=== PATIENT | male | born 1990 | race Caucasian/White ===

== ENCOUNTER 2019-01-14 08:46 | Emergency (ER) | payer SELFPAY ==
[2019-01-14] MEDS ORDERED: ASPIRIN 81 MG TABLET, CHEWABLE PO ONE (09:14)
--- NOTE | 2019-01-14 09:16 | ER Document Report ---
ED Medical Screen (RME) - General Chief Complaint: Shortness Of Breath Stated Complaint: HEART RATE Time Seen by Provider: 01/14/19 09:10 Primary Care Provider: MADDY ARBOLEDA MD [Primary Care Provider] - Follow up as needed Mode of Arrival: Ambulatory Information source: Patient Notes: Patient is an otherwise healthy 28-year-old male who presents the emergency department with chief complaint of chest pressure with shortness of breath. Patient reports he was sitting at his desk at work when he all of a sudden had mid sternal squeezing chest pressure with associated shortness of breath and tingling in both of his arms and hands. All of his symptoms have now resolved. Patient denies any nausea, vomiting or diaphoresis. Patient has no history of hypertension, hyperlipidemia and he is a non-smoker. Exam: Lung sounds clear to auscultation bilaterally. Heart sounds S1-S2 present with no ectopy noted. I have greeted and performed a rapid initial assessment of this patient. A comprehensive ED assessment and evaluation of the patient, analysis of test results and completion of the medical decision making process will be conducted by additional ED providers. Dictation of this chart was performed using voice recognition software; therefore, there may be some unintended grammatical errors. TRAVEL OUTSIDE OF THE [place] IN LAST 30 DAYS: No - Related Data Allergies/Adverse Reactions: sulfamethoxazole [From Bactrim] Allergy (Unknown, Verified 01/14/19 08:46) trimethoprim [From Bactrim] Allergy (Unknown, Verified 01/14/19 08:46) Past Medical History Past Surgical History: Reports: Hx Tonsillectomy - & adenoids - Immunizations Hx Diphtheria, Pertussis, Tetanus Vaccination: Yes - <5 years Physical Exam - Vital signs Vitals: Temp Pulse Resp BP Pulse Ox 97.9 F 90 15 153/86 H 99 01/14/19 08:54 01/14/19 08:54 01/14/19 08:54 01/14/19 08:54 01/14/19 08:54 Course - Vital Signs Vital signs: Temp Pulse Resp BP Pulse Ox 97.9 F 90 15 153/86 H 99 01/14/19 08:54 01/14/19 08:54 01/14/19 08:54 01/14/19 08:54 01/14/19 08:54 Doctor's Discharge - Discharge Referrals: MADDY ARBOLEDA MD [Primary Care Provider] - Follow up as needed
[2019-01-14 09:58] LABS: ABSOLUTE EOSINOPHILS # (AUTO) 0.1 10^3/uL (0.0-0.6); ABSOLUTE LYMPHOCYTES (AUTO) 1.3 10^3/uL (0.5-4.7); ABSOLUTE MONOCYTES (AUTO) 0.7 10^3/uL (0.1-1.4); ABSOLUTE NEUT (AUTO) 3.9 10^3/uL (1.7-8.2); BASOPHILS % (AUTO) 0.6 % (0-2); EOSINOPHILS % (AUTO) 1.9 % (0-6); HEMATOCRIT 43.8 % (37.9-51.0); HEMOGLOBIN 15.5 g/dL (13.5-17.0); LYMPHOCYTES % (AUTO) 21.3 % (13-45); MEAN CORPUSCULAR HEMOGLOBIN 29.3 pg (27.0-33.4); MEAN CORPUSCULAR HGB CONC 35.5 g/dL (32.0-36.0); MEAN CORPUSCULAR VOLUME 83 fl (80-97); PLATELET COUNT 229 10^3/uL (150-450); RED BLOOD COUNT 5.31 10^6/uL (4.35-5.55); RED CELL DISTRIBUTION WIDTH 12.9 % (11.5-14.0); SEGMENTED NEUTROPHILS % (AUTO) 65.2 % (42-78); TOTAL CELLS COUNTED % (AUTO) 100 %
[2019-01-14 10:17] LABS: ALANINE AMINOTRANSFERASE 41 U/L (21-72); ALBUMIN 4.7 g/dL (3.5-5.0); ALKALINE PHOSPHATASE 82 U/L (38-126); ANION GAP 10 (5-19); ASPARTATE AMINO TRANSFERASE 32 U/L (17-59); BILIRUBIN,DIRECT 0.4 mg/dL (0.0-0.4); BLOOD UREA NITROGEN 18 mg/dL (7-20); CALCIUM 9.8 mg/dL (8.4-10.2); CARBON DIOXIDE 29 mmol/L (22-30); CHLORIDE 102 mmol/L (98-107); CREATINE KINASE 115 U/L (55-170); GLUCOSE 103 mg/dL (75-110); POTASSIUM 4.3 mmol/L (3.6-5.0); SODIUM 140.5 mmol/L (137-145); TOTAL PROTEIN 7.9 g/dL (6.3-8.2)
--- NOTE | 2019-01-14 10:19 | ER Document Report ---
ED General - General Chief Complaint: Shortness Of Breath Stated Complaint: HEART RATE Time Seen by Provider: 01/14/19 09:10 Primary Care Provider: MADDY ARBOLEDA MD [MARY CABELLO] - Follow up as needed Mode of Arrival: Ambulatory Information source: Patient, [facility] Records Notes: 28-year-old male with no reported past medical history presents with complaint of chest pain, shortness of breath, palpitations that occurred 2 hours prior to arrival while at work. Patient states that he had a sudden onset of feeling "flushed", dizzy, became sweaty and then experienced palpitations, shortness of breath and chest pain that are presently resolved. Patient denies prior similar symptoms, recent illness, early history of cardiac disease in his family. Patient does not smoke but admits to drinking daily. Admits to intermittent marijuana use but states his last use was approximately 2-3 months ago. TRAVEL OUTSIDE OF THE [place] IN LAST 30 DAYS: No - HPI Onset: This morning Onset/Duration: Sudden, Gone Quality of pain: Achy Severity: None Pain Level: Denies Associated symptoms: Chest pain, Shortness of breath, Sweating, Other - Dizziness. denies: Diarrhea, Headache, Hurts to breath, Leg swelling, Nausea, Vomiting Exacerbated by: Denies Relieved by: Denies Similar symptoms previously: No Recently seen / treated by doctor: No - Related Data Allergies/Adverse Reactions: sulfamethoxazole [From Bactrim] Allergy (Unknown, Verified 01/14/19 08:46) trimethoprim [From Bactrim] Allergy (Unknown, Verified 01/14/19 08:46) Past Medical History - General Information source: Patient - Social History Smoking Status: Never Smoker Chew tobacco use (# tins/day): No Frequency of alcohol use: daily Drug Abuse: Marijuana Lives with: Spouse/Significant other Family History: Reviewed & Not Pertinent Patient has suicidal ideation: No Patient has homicidal ideation: No - Medical History Medical History: Negative Renal/ Medical History: Denies: Hx Peritoneal Dialysis Past Surgical History: Reports: Hx Tonsillectomy - & adenoids - Immunizations Hx Diphtheria, Pertussis, Tetanus Vaccination: Yes - <5 years Review of Systems - Review of Systems Notes: REVIEW OF SYSTEMS: CONSTITUTIONAL : Denies fever, chills, Denies recent illness. Denies weight loss, recent hospitalizations. EENT: Denies visual changes, eye pain. Denies sore throat, oral lesions, difficulty swallowing. CARDIOVASCULAR: Denies lower extremity edema. RESPIRATORY: Denies cough. Denies wheezing. GASTROINTESTINAL: Denies abdominal pain or distention. Denies nausea, vomiting, or diarrhea. Denies blood in vomitus, stools, or per rectum. Denies black, tarry stools. Denies constipation. GENITOURINARY: Denies difficulty urinating, painful urination, frequency, blood in urine, testicular pain or penile discharge. MUSCULOSKELETAL: Denies back or neck pain or stiffness. Denies joint pain or swelling. SKIN: Denies rash, lesions or sores. HEMATOLOGIC : Denies easy bruising or bleeding. LYMPHATIC: Denies swollen glands. NEUROLOGICAL: Denies confusion or altered mental status. Denies loss of consciousness. Denies headache. Denies weakness or paralysis. Denies problems difficulty with ambulation, slurred speech. Denies sensory loss, numbness, or tingling. Denies seizures. PSYCHIATRIC: Denies anxiety or stress. Denies depression, suicidal ideation, o r Physical Exam - Vital signs Vitals: Temp Pulse Resp BP Pulse Ox 97.9 F 90 15 153/86 H 99 01/14/19 08:54 01/14/19 08:54 01/14/19 08:54 01/14/19 08:54 01/14/19 08:54 Interpretation: Hypertensive - Notes Notes: PHYSICAL EXAMINATION: GENERAL: Well-appearing, well-nourished and in no acute distress. HEAD: Atraumatic, normocephalic. EYES: Pupils equal round and reactive to light, extraocular movements intact, sclera anicteric, conjunctiva are normal. ENT: Nares patent, oropharynx clear without exudates. Moist mucous membranes. NECK: Normal range of motion, supple without lymphadenopathy LUNGS: Breath sounds clear to auscultation bilaterally and equal. No wheezes rales or rhonchi. HEART: Regular rate and rhythm without murmurs ABDOMEN: Soft, nontender, nondistended abdomen. No guarding, no rebound. No masses appreciated. Musculoskeletal: Normal range of motion, no pitting or edema. No cyanosis. NEUROLOGICAL: Cranial nerves grossly intact. Normal speech, normal gait. Normal sensory, motor exams PSYCH: Normal mood, normal affect. SKIN: Warm, Dry, normal turgor, no rashes or lesions noted. Course - Re-evaluation Re-evalutation: 01/14/19 11:39 Laboratory 01/14/19 01/14/19 01/14/19 09:20 09:20 09:20 WBC 6.0 RBC 5.31 Hgb 15.5 Hct 43.8 MCV 83 MCH 29.3 MCHC 35.5 RDW 12.9 Plt Count 229 Seg Neutrophils % 65.2 Lymphocytes % 21.3 Monocytes % 11.0 Eosinophils % 1.9 Basophils % 0.6 Absolute Neutrophils 3.9 Absolute Lymphocytes 1.3 Absolute Monocytes 0.7 Absolute Eosinophils 0.1 Absolute Basophils 0.0 Sodium 140.5 Potassium 4.3 Chloride 102 Carbon Dioxide 29 Anion Gap 10 BUN 18 Creatinine 0.81 Est GFR ( Amer) > 60 Est GFR (Non-Af Amer) > 60 Glucose 103 Calcium 9.8 Total Bilirubin 1.0 Direct Bilirubin 0.4 Neonat Total Bilirubin Not Reportable Neonat Direct Bilirubin Not Reportable Neonat Indirect Bili Not Reportable AST 32 ALT 41 Alkaline Phosphatase 82 Creatine Kinase 115 CK-MB (CK-2) 0.43 Troponin I < 0.012 Total Protein 7.9 Albumin 4.7 Urine Opiates Screen Urine Methadone Screen Ur Barbiturates Screen Ur Phencyclidine Scrn Ur Amphetamines Screen U Benzodiazepines Scrn Urine Cocaine Screen U Marijuana (THC) Screen 01/14/19 09:20 WBC RBC Hgb Hct MCV MCH MCHC RDW Plt Count Seg Neutrophils % Lymphocytes % Monocytes % Eosinophils % Basophils % Absolute Neutrophils Absolute Lymphocytes Absolute Monocytes Absolute Eosinophils Absolute Basophils Sodium Potassium Chloride Carbon Dioxide Anion Gap BUN Creatinine Est GFR ( Amer) Est GFR (Non-Af Amer) Glucose Calcium Total Bilirubin Direct Bilirubin Neonat Total Bilirubin Neonat Direct Bilirubin Neonat Indirect Bili AST ALT Alkaline Phosphatase Creatine Kinase CK-MB (CK-2) Troponin I Total Protein Albumin Urine Opiates Screen NEGATIVE Urine Methadone Screen NEGATIVE Ur Barbiturates Screen NEGATIVE Ur Phencyclidine Scrn NEGATIVE Ur Amphetamines Screen NEGATIVE U Benzodiazepines Scrn NEGATIVE Urine Cocaine Screen NEGATIVE U Marijuana (THC) Screen NEGATIVE Chest X-Ray 01/14/19 09:14 IMPRESSION: 1. No significant interval changes since the prior examination dated 08/10/2014. No acute findings. Temp Pulse Resp BP Pulse Ox 97.9 F 90 17 135/77 H 98 01/14/19 08:54 01/14/19 08:54 01/14/19 11:01 01/14/19 11:00 01/14/19 11:01 28-year-old male presents with sudden onset of diaphoresis, palpitations, shortness of breath and chest pain that resolved prior to my exam. Vital signs reviewed and within normal limits except for mildly elevated blood pressure. Patient does not appear toxic or dehydrated. He is in no acute distress. Previous medical records and nursing notes reviewed. Patient did receive aspirin prior to my exam. He denies any current chest pain, shortness of breath, diaphoresis, nausea. CBC, CMP, cardiac within normal limits. Patient has a heart score of 1. Has not had any recurrence of his chest pain throughout his ED course. Patient advised to establish primary care and return with any concerns. Dictation on this chart was performed using voice recognition software and may result in unintended grammatical, spelling, syntax or errors. HEART Score: History-1 ECG-0 Age-0 Risk Factors-0 Troponin Total: 1 If HEART score is = 3 AND both troponin measurements are normal, the 30 day risk of a major adverse cardiac event (all-cause mortality, myocardial infarction or need for coronary revascularization) is < 1% (Sensitivity 100%, NPV 100%). Chest pain in a patient without evidence of cardiac or other serious etiology on workup today. I discussed with patient that, based on their age, risk factors and emergency department testing today, the likelihood that their symptoms are related to a heart attack is very low (estimated risk of heart attack or over the next 30 days of less than 1%). The patient demonstrates decision making capacity and has verbalized an understanding of these risks to me. Based on this, the patient has chosen to follow-up as an outpatient. Usual chest pain return precautions reviewed. The patient states understanding and agreement with this plan. 01/14/19 11:41 Patient is PERC negative. 01/14/19 22:34 01/14/19 22:35 - Vital Signs Vital signs: Temp Pulse Resp BP Pulse Ox 97.9 F 90 17 135/77 H 98 01/14/19 08:54 01/14/19 08:54 01/14/19 11:01 01/14/19 11:00 01/14/19 11:01 - Laboratory Result Diagrams: 01/14/19 09:20 01/14/19 09:20 - Diagnostic Test Radiology reviewed: Image reviewed, Reports reviewed - EKG Interpretation by Me EKG shows normal: Sinus rhythm Rate: Normal Rhythm: NSR When compared to previous EKG there are: Previous EKG unavailable Discharge - Discharge Clinical Impression: Elevated blood pressure reading Chest pain Qualifiers: Chest pain type: unspecified Qualified Code(s): R07.9 - Chest pain, unspecified Condition: Good Disposition: HOME, SELF-CARE Instructions: Chest Pain of Unclear Cause ([facility]), Dyspnea, Nonspecific ([facility]), Palpitations (Irregular or Rapid Heartrate) ([facility]) Additional Instructions: You were seen today for chest pain. The exact cause of your pain is unclear. However, based on your cardiac enzyme testing, chest x-ray, and EKG it does not appear that it is from an immediately life-threatening cause at this time. Although your testing here is normal is critical that you follow-up with your primary care physician for continued evaluation of this chest pain and possible stress testing. I recommended you see your physician within the next 24-48 hours to be evaluated for consideration of a stress test. Please return to emergency department immediately if you have worsening of your chest pain, shortness of breath, vomiting, become unable to exert yourself due to pain or difficulty breathing, you pass out, or have any pain that radiates into your arms, jaw, or back. Please also return if you have any additional symptoms that are concerning to you. Recommendations: It is recommended to followup with a primary care doctor within the next 2 days. If you do not have a primary care doctor or you are unable to get an apointment during that time, I left the number for some internal medicine physicians that are affiliated with this hospital. Dr. Ren Santoyo [facility] [address], [place] [phone] Dr Blackburn Address: [address] [place] [address] , [place] [address] Forms: Elevated Blood Pressure Referrals: MADDY ARBOLEDA MD [MARY CABELLO] - Follow up as needed
--- NOTE | 2019-01-14 10:37 | RADIOLOGY REPORT (SQ) ---
EXAM DESCRIPTION: CHEST SINGLE VIEW COMPLETED DATE/TIME: 01/14/2019 10:25 am REASON FOR STUDY: chest pain with sob COMPARISON: 08/10/2014 EXAM PARAMETERS: NUMBER OF VIEWS: One view. TECHNIQUE: Single frontal radiographic view of the chest acquired. RADIATION DOSE: NA LIMITATIONS: None. FINDINGS: LUNGS AND PLEURA: No opacities, masses or pneumothorax. No pleural effusion. MEDIASTINUM AND HILAR STRUCTURES: No masses. Contour normal. HEART AND VASCULAR STRUCTURES: Heart normal in size. Normal vasculature. BONES: No acute findings. HARDWARE: None in the chest. OTHER: No other significant finding. IMPRESSION: 1. No significant interval changes since the prior examination dated 08/10/2014. No ac hilda findings. TECHNICAL DOCUMENTATION: JOB ID: [id number] [employer]- All Rights Reserved Reading location - IP/workstation name: [email or web address]
[2019-01-14 10:50] LABS: CREATINE KINASE MB 0.43 ng/mL (<4.55)
[2019-01-14 10:51] LABS: TROPONIN I < 0.012 ng/mL
[2019-01-14 11:36] LABS: URINE AMPHETAMINES SCREEN NEGATIVE; URINE BARBITURATES SCREEN NEGATIVE; URINE BENZODIAZEPINES SCREEN NEGATIVE; URINE COCAINE SCREEN NEGATIVE; URINE MARIJUANA (THC) SCREEN NEGATIVE; URINE METHADONE SCREEN NEGATIVE; URINE PHENCYCLIDINE SCREEN NEGATIVE
[2019-01-14 11:44] VITALS: BP 135/77
--- NOTE | 2019-01-14 12:24 | EKG REPORT ---
SEVERITY:- NORMAL ECG - SINUS RHYTHM : Confirmed by: Jose Abdi MD 14-Jan-2019 12:23:38
== END 2019-01-14 11:54 | disposition home or self-care (01) ==
LOC: ER 08:46
DX: R07.9 Chest pain, unspecified (principal); R03.0 Elevated blood-pressure reading, without diagnosis of hypertension; R06.02 Shortness of breath; Z88.3 Allergy status to other anti-infective agents
CPT/HCPCS: 36415; 71045; 80053; 80307; 82550; 82553; 84484; 85025; 93005; 93010; 99285

== ENCOUNTER → 2020-01-20 | Outpatient (CLI) | payer BC ==
--- NOTE | 2020-01-20 14:48 | RADIOLOGY REPORT (SQ) ---
EXAM DESCRIPTION: BARIUM SWALLOW ESOPHAGUS IMAGES COMPLETED DATE/TIME: 01/20/2020 9:36 am REASON FOR STUDY: DYSPHAGIA R13.10 DYSPHAGIA, UNSPECIFIED COMPARISON: None. TECHNIQUE: Under fluoroscopic guidance, patient ingested effervescent granules followed by thick and thin barium. Fluoroscopic spot images and routine radiographic images acquired and stored on PACS. 12 MM BARIUM TABLET GIVEN: Yes. No significant delay in passage. LIMITATIONS: None. FLUOROSCOPY TIME: FLUORO TIME: 2.3 minutes of fluoroscopy was used. 10 images saved to PACS. FINDINGS: NEUROMUSCULAR COORDINATION OF SWALLOW: Normal. No aspiration. ESOPHAGEAL MOTILITY: Normal peristalsis. No esophageal spasm. ESOPHAGEAL MUCOSA: There is a focal area of mild mucosal thickening in the proximal esophagus at the thoracic inlet. No strictures or ulcerations are identified. GASTRO-ESOPHAGEAL JUNCTION: Mild gastroesophageal reflux. No hiatal hernia seen. 12 mm barium table t passed through the GE junction without delay. NON-GI TRACT STRUCTURES: No significant finding. OTHER: No other significant finding. IMPRESSION: FOCAL AREA OF INFLAMMATION ALONG THE RIGHT LATERAL ASPECT OF THE PROXIMAL ESOPHAGUS AT T HE THORACIC INLET. NO ULCERATIONS OR STRICTURES IDENTIFIED. MILD GASTROESOPHAGEAL REFLUX. COMMENT: Quality ID [id number]: Final reports for procedures using fluoroscopy that document radiation exp osure indices, or exposure time and number of fluorographic images (if radiation exposure indices are not available) TECHNICAL DOCUMENTATION: JOB ID: [id number] 2010 [employer]- All Rights Reserved Reading location - IP/workstation name: [email or web address] [id number]
== END ==
LOC: RAD 09:08
PROVIDERS: ATTEND Internal Medicine Gastroenterology
DX: R13.10 Dysphagia, unspecified (principal)
CPT/HCPCS: 74220

== ENCOUNTER 2020-03-03 06:56 | Day surgery (SDC) | payer BC ==
[~2020-03-03 06:56] MED LIST: LACTATED RINGERS 1000 ML IV PRN; LIDOCAINE 0.5% INJ-PF (5 MG/ML) 50 ML SDV SUBCUT PRN
[2020-03-03] MEDS ORDERED: PROPOFOL INJ 200 MG/20 ML VIAL IV ONE (09:27)
[2020-03-03] MEDS ORDERED: DIPHENHYDRAMINE HCL 50 MG/ML VIAL IV PRN (10:07)
[2020-03-03 10:50] VITALS: BP 117/76
--- NOTE | 2020-03-03 11:57 | Operative Report ---
Operative Report DATE OF SURGERY: 03/03/20 Operative Report: The risks benefits and alternatives of the procedure explained to the patient in detail and informed consent is obtained.A GIF Olympus video scope was inserted into the patient's mouth and hypopharynx, the esophagus is identified intubated and insufflated, the scope was then advanced through the esophagus stomach and duodenum, retroflexion maneuver is done, the esophagus stomach and first and second portions of the duodenum examined PREOPERATIVE DIAGNOSIS: Abnormal barium swallow POSTOPERATIVE DIAGNOSIS: Possible Jones's esophagus versus esophagitis status post biopsy gastritis status post biopsy rule out Helicobacter pylori OPERATION: EGD with biopsy SURGEON: JOANNA DURAND ANESTHESIA: LMAC TISSUE REMOVED OR ALTERED: As noted above. COMPLICATIONS: None. ESTIMATED BLOOD LOSS: None. INTRAOPERATIVE FINDINGS: As noted above. PROCEDURE: Patient tolerated the procedure well. No immediate postprocedure complications are noted. Patient is discharged in good condition. Discharge date 03/02/2020. Discharge diet: Regular. Discharge activity: Regular. 2 to 3-week follow-up to discuss findings. Patient is instructed to call the office or proceed to the emergency room should there be any further problems or questions. Wait on the pathology.
== END 2020-03-03 10:40 | disposition home or self-care (01) ==
LOC: OROUT 06:56
PROVIDERS: ATTEND Internal Medicine Gastroenterology
DX: K29.50 Unspecified chronic gastritis without bleeding (principal); K21.0 Gastro-esophageal reflux disease with esophagitis; Z87.891 Personal history of nicotine dependence; Z79.899 Other long term (current) drug therapy; Z88.2 Allergy status to sulfonamides; Z03.818 Encounter for observation for suspected exposure to other biological agents ruled out
CPT/HCPCS: 43239; 87635; 88342 ×2; 88305 ×2; 00731; J2704; 731

== ENCOUNTER 2020-09-14 19:52 | Emergency (ER) | payer BC ==
--- NOTE | 2020-09-14 20:18 | ER Document Report ---
ED Medical Screen (RME) - General Chief Complaint: Dizziness Stated Complaint: DIZZINESS,CHEST TIGHTNESS Time Seen by Provider: 09/14/20 20:07 Primary Care Provider: HARRY MAX DO [Primary Care Provider] - Follow up as needed TRAVEL OUTSIDE OF THE [place] IN LAST 30 DAYS: No - HPI Notes: 09/14/20 20:15 29-year-old male with past medical history for esophagitis to the emergency department with complaints of chest pain that is been going on for 1 week. He states it is gotten progressively worse over the week. He states that it hurts when he takes a big deep breath but it is also constant. He denies any nausea or vomiting. He denies any shortness of breath. He denies any diaphoresis. He states that today he also developed dizziness. He states he feels like he drin ks 6 beers. He did not drink any alcohol today. He states he just feels like he is sloshing around. Denies any sensations of lightheadedness. Denies any ear pain, sore throat, cough, fever, body aches, loss of smell or taste, or any positive COVID-19 contacts. He does not smoke cigarettes but he does chew tobacco. He usually drinks about 2 beers a night but has not had anything tonight. He does not use any drugs. Does not have a history of hypertension, lipidemia, or diabetes. On brief medical screening exam, cranial nerves II through XII are intact with no further drift and patient is able to ambulate with ease. TMs are clear bilaterally. Auscultation of the chest is clear in all lung quadrants with no wheezes or rhonchi's or rales. Heart auscultation illustrates no murmurs, rubs, or gallops. I performed a brief medical screening exam on the patient determined that the patient needs further evaluation and management by main side provider. I have placed initial orders to help expedite care. - Related Data Allergies/Adverse Reactions: trimethoprim [From Bactrim] Allergy (Severe, Verified 03/03/20 07:43) RASH sulfamethoxazole [From Bactrim] Allergy (Unknown, Verified 03/03/20 07:43) RASH Home Medications: otc antacids. Past Medical History - Social History Chew tobacco use (# tins/day): Yes Frequency of alcohol use: 3-6 beers daily Drug Abuse: None - Past Medical History Cardiac Medical History: Denies: Hx Coronary Artery Disease, Hx Heart Attack, Hx Hypertension Pulmonary Medical History: Denies: Hx Asthma, Hx Bronchitis, Hx COPD, Hx Pneumonia Neurological Medical History: Denies: Hx Cerebrovascular Accident, Hx Seizures Renal/ Medical History: Denies: Hx Peritoneal Dialysis Musculoskeltal Medical History: Denies Hx Arthritis Past Surgical History: Reports: Hx Tonsillectomy - & adenoids - Immunizations Hx Diphtheria, Pertussis, Tetanus Vaccination: Yes - <5 years Physical Exam - Vital signs Vitals: Temp Pulse Resp BP Pulse Ox 98.5 F 76 20 149/88 H 98 09/14/20 20:05 09/14/20 20:05 09/14/20 20:05 09/14/20 20:05 09/14/20 20:05 Course - Vital Signs Vital signs: Temp Pulse Resp BP Pulse Ox 98.5 F 76 20 149/88 H 98 09/14/20 20:05 09/14/20 20:05 09/14/20 20:05 09/14/20 20:05 09/14/20 20:05 Doctor's Discharge - Discharge Referrals: HARRY MAX DO [Primary Care Provider] - Follow up as needed
[2020-09-14 20:51] LABS: ABSOLUTE BASOPHILS # (AUTO) 0.1 10^3/uL (0.0-0.2); ABSOLUTE EOSINOPHILS # (AUTO) 0.2 10^3/uL (0.0-0.6); ABSOLUTE LYMPHOCYTES (AUTO) 2.7 10^3/uL (0.5-4.7); ABSOLUTE MONOCYTES (AUTO) 0.7 10^3/uL (0.1-1.4); ABSOLUTE NEUT (AUTO) 5.3 10^3/uL (1.7-8.2); BASOPHILS % (AUTO) 0.7 % (0-2); EOSINOPHILS % (AUTO) 2.5 % (0-6); HEMATOCRIT 44.9 % (37.9-51.0); HEMOGLOBIN 15.6 g/dL (13.5-17.0); LYMPHOCYTES % (AUTO) 29.8 % (13-45); MEAN CORPUSCULAR HEMOGLOBIN 28.8 pg (27.0-33.4); MEAN CORPUSCULAR HGB CONC 34.8 g/dL (32.0-36.0); MEAN CORPUSCULAR VOLUME 83 fl (80-97); MONOCYTES % (AUTO) 7.9 % (3-13); PLATELET COUNT 236 10^3/uL (150-450); RED BLOOD COUNT 5.43 10^6/uL (4.35-5.55); RED CELL DISTRIBUTION WIDTH 12.6 % (11.5-14.0); SEGMENTED NEUTROPHILS % (AUTO) 59.1 % (42-78); TOTAL CELLS COUNTED % (AUTO) 100 %
[2020-09-14 20:53] LABS: APPEARANCE,URINE CLEAR; BILIRUBIN,URINE NEGATIVE (NEGATIVE); COLOR,URINE STRAW; GLUCOSE, URINE NEGATIVE (NEGATIVE); KETONES,URINE NEGATIVE (NEGATIVE); LEUKOCYTE ESTERASE,URINE NEGATIVE (NEGATIVE); NITRITE,URINE NEGATIVE (NEGATIVE); PROTEIN,URINE NEGATIVE (NEGATIVE); URINE SPECIFIC GRAVITY 1.004; UROBILINOGEN,URINE NEGATIVE mg/dL (<2.0)
--- NOTE | 2020-09-14 21:02 | RADIOLOGY REPORT (SQ) ---
EXAM DESCRIPTION: XR CHEST 2 VIEWS COMPLETED DATE/TME: 09/14/2020 20:25 CLINICAL HISTORY: 29 years, Male, chest pain COMPARISON: None. NUMBER OF VIEWS: TECHNIQUE: LIMITATIONS: None. FINDINGS: No evidence of pulmonary infiltrate or pleural effusion. The heart and mediastinum are unremarkable. Pulmonary vascularity appears normal. IMPRESSION: Normal chest x-ray. copyright 2010 [employer]- All Rights Reserved
[2020-09-14 21:07] LABS: URINE AMPHETAMINES SCREEN NEGATIVE; URINE BARBITURATES SCREEN NEGATIVE; URINE BENZODIAZEPINES SCREEN NEGATIVE; URINE COCAINE SCREEN NEGATIVE; URINE MARIJUANA (THC) SCREEN NEGATIVE; URINE METHADONE SCREEN NEGATIVE; URINE PHENCYCLIDINE SCREEN NEGATIVE
[2020-09-14 21:13] LABS: BLOOD UREA NITROGEN 15 mg/dL (7-20); CALCIUM 9.6 mg/dL (8.4-10.2); CARBON DIOXIDE 30 mmol/L (22-30); CHLORIDE 100 mmol/L (98-107); GLUCOSE 119 mg/dL (75-110); POTASSIUM 4.3 mmol/L (3.6-5.0)
[2020-09-14 21:14] LABS: ALBUMIN 4.8 g/dL (3.5-5.0); ALKALINE PHOSPHATASE 71 U/L (38-126); ANION GAP 7 (5-19); ASPARTATE AMINO TRANSFERASE 24 U/L (17-59); BILIRUBIN,TOTAL 0.9 mg/dL (0.2-1.3); TOTAL PROTEIN 7.6 g/dL (6.3-8.2)
[2020-09-14] MEDS ORDERED: MECLIZINE HCL 25 MG TABLET PO ONE (23:29)
[2020-09-14] MEDS ORDERED: ONDANSETRON 4 MG TAB.RAPDIS PO ONE (23:29)
--- NOTE | 2020-09-14 23:31 | ER Document Report ---
ED General - General Chief Complaint: Dizziness Stated Complaint: DIZZINESS,CHEST TIGHTNESS Time Seen by Provider: 09/14/20 20:07 Primary Care Provider: FLACO KING MD [ACTIVE STAFF] - Follow up as needed JOANNA DURAND MD [ACTIVE STAFF] - Follow up as needed HARRY MAX DO [Primary Care Provider] - Follow up as needed Mode of Arrival: Ambulatory Information source: Patient Notes: Patient presents complaining of upper chest pain for the past week. Patient has had some pain with inspiration. Patient without any shortness of breath. Patient states that he had some dizziness today that he described as a rotational spinning sensation of the room. Patient denies any sinus congestion or headache. Patient reports occasional dry cough. Patient denies any concerns about possible Covid. Patient does have a history of esophagitis and daily alcohol use. Patient reports having a previous endoscopy procedure in December which showed some swelling of the esophagus. TRAVEL OUTSIDE OF THE [place] IN LAST 30 DAYS: No - HPI Onset: Last week Onset/Duration: Persistent Quality of pain: Pressure Pain Level: 2 Associated symptoms: Chest pain, Nonproductive cough. denies: Nausea, Vomiting, Shortness of breath Exacerbated by: Denies Relieved by: Denies Similar symptoms previously: No Recently seen / treated by doctor: No - Related Data Allergies/Adverse Reactions: trimethoprim [From Bactrim] Allergy (Severe, Verified 03/03/20 07:43) RASH sulfamethoxazole [From Bactrim] Allergy (Unknown, Verified 03/03/20 07:43) RASH Home Medications: otc antacids. Past Medical History - General Information source: Patient - Social History Smoking Status: Never Smoker Chew tobacco use (# tins/day): Yes Frequency of alcohol use: 3-6 beers daily Drug Abuse: None Occupation: medical billing manager Lives with: Family Family History: Reviewed & Not Pertinent Patient has homicidal ideation: No - Past Medical History Cardiac Medical History: Denies: Hx Coronary Artery Disease, Hx Heart Attack, Hx Hypertension Pulmonary Medical History: Denies: Hx Asthma, Hx Bronchitis, Hx COPD, Hx Pneumonia Neurological Medical History: Denies: Hx Cerebrovascular Accident, Hx Seizures Renal/ Medical History: Denies: Hx Peritoneal Dialysis GI Medical History: Reports: Hx Gastroesophageal Reflux Disease Musculoskeletal Medical History: Denies Hx Arthritis Past Surgical History: Reports: Hx Adenoidectomy, Hx Tonsillectomy - Immunizations Hx Diphtheria, Pertussis, Tetanus Vaccination: Yes - <5 years Review of Systems - Review of Systems Constitutional: No symptoms reported. denies: Fever EENT: No symptoms reported. denies: Nose congestion, Nose discharge, Sinus pressure, Sinus discharge Cardiovascular: Chest pain, Dizziness. denies: Syncope, Lightheaded Respiratory: Cough. denies: Short of breath Gastrointestinal: Abdominal pain - Epigastric pain few days ago, now gone. denies: Vomiting Genitourinary: No symptoms reported Male Genitourinary: No symptoms reported Musculoskeletal: No symptoms reported. denies: Back pain, Leg swelling Skin: No symptoms reported Hematologic/Lymphatic: No symptoms reported Neurological/Psychological: No symptoms reported Physical Exam - Vital signs Vitals: Temp Pulse Resp BP Pulse Ox 98.5 F 76 20 149/88 H 98 09/14/20 20:05 09/14/20 20:05 09/14/20 20:05 09/14/20 20:05 09/14/20 20:05 - Notes Notes: PHYSICAL EXAMINATION: GENERAL: Well-appearing and in no acute distress. HEAD: Atraumatic, normocephalic. EYES: sclera anicteric, conjunctiva are normal. ENT: nares patent. Moist mucous membranes. NECK: Normal range of motion, supple without lymphadenopathy LUNGS: CTAB and equal. No wheezes rales or rhonchi. Chest nontender to palpation. HEART: Regular rate and rhythm without murmurs ABDOMEN: Soft, nontender, normal bowel sounds, no guarding. EXTREMITIES: Normal range of motion, no pitting edema. No cyanosis. BACK: No CVA tenderness NEUROLOGICAL: Cranial nerves grossly intact. Normal speech. PSYCH: Normal mood, normal affect. SKIN: Warm, Dry, normal turgor, no rashes or lesions noted - HEENT Ears: Normal External canal: Normal Tympanic membrane: Normal. No: Hemotympanum, Retracted, Serous effusion Course - Re-evaluation Re-evalutation: 09/15/20 01:40 Patient reports that dizzy symptoms have resolved after meclizine and Zofran. Patient with a history of daily alcohol use and symptoms worrisome for GERD. Patient denies any chest discomfort at this time. Presentation of chest pain in an otherwise well appearing patient. Low clinical suspicion for ACS given cl inical history, exam, EKG without ST elevations or depressions, and negative initial troponin. HEART score less than or equal to 3. PE also seems unlikely given clinical history, absence of tachycardia or dyspnea. Patient is PERC criteria negative. CXR without evidence of pneumothorax or pneumonia. No widened mediastinum. Chest pain in a patient without evidence of cardiac or other serious etiology on workup today. I discussed with patient that, based on their age, risk factors and emergency department testing today, the likelihood that their symptoms are related to a heart attack is very low. The patient demonstrates decision making capacity and has verbalized an understanding of these risks to me. Based on this, the patient has chosen to follow-up as an outpatient. Usual chest pain return precautions reviewed. The patient states understanding and agreement with this plan. 09/15/20 03:42 - Vital Signs Vital signs: Temp Pulse Resp BP Pulse Ox 98.5 F 60 14 113/74 96 09/14/20 20:05 09/14/20 22:54 09/14/20 22:54 09/15/20 01:53 09/15/20 01:53 - Laboratory Result Diagrams: 09/14/20 20:35 09/14/20 20:35 Laboratory results interpreted by me: 09/14/20 20:35 Sodium 136.9 L Glucose 119 H 09/15/20 03:42 Labs- All tests 24 hr 09/14/20 09/14/20 09/14/20 20:35 20:35 20:35 WBC 9.0 RBC 5.43 Hgb 15.6 Hct 44.9 MCV 83 MCH 28.8 MCHC 34.8 RDW 12.6 Plt Count 236 Lymph % (Auto) 29.8 [place] % (Auto) 7.9 Eos % (Auto) 2.5 Baso % (Auto) 0.7 Absolute Neuts (auto) 5.3 Absolute Lymphs (auto) 2.7 Absolute Monos (auto) 0.7 Absolute Eos (auto) 0.2 Absolute Basos (auto) 0.1 Seg Neutrophils % 59.1 Sodium 136.9 L Potassium 4.3 Chloride 100 Carbon Dioxide 30 Anion Gap 7 BUN 15 Creatinine 1.02 Est GFR ( Amer) > 60 Est GFR (MDRD) Non-Af > 60 Glucose 119 H Calcium 9.6 Magnesium 2.3 Total Bilirubin 0.9 Direct Bilirubin 0.0 Neonat Total Bilirubin Not Reportable Neonat Direct Bilirubin Not Reportable Neonat Indirect Bili Not Reportable AST 24 ALT 27 Alkaline Phosphatase 71 Troponin I Total Protein 7.6 Albumin 4.8 Lipase Urine Color STRAW Urine Appearance CLEAR Urine pH 7.0 Ur Specific [place] 1.004 Urine Protein NEGATIVE Urine Glucose (UA) NEGATIVE Urine Ketones NEGATIVE Urine Blood NEGATIVE Urine Nitrite NEGATIVE Urine Bilirubin NEGATIVE Urine Urobilinogen NEGATIVE Ur Leukocyte Esterase NEGATIVE Urine WBC (Auto) 2 Urine RBC (Auto) 0 Urine Mucus (Auto) RARE Urine Ascorbic Acid NEGATIVE Urine Opiates Screen Urine Methadone Screen Ur Barbiturates Screen Ur Phencyclidine Scrn Ur Amphetamines Screen U Benzodiazepines Scrn Urine Cocaine Screen U Marijuana (THC) Screen 09/14/20 09/14/20 09/14/20 20:35 20:35 20:35 WBC RBC Hgb Hct MCV MCH MCHC RDW Plt Count Lymph % (Auto) [place] % (Auto) Eos % (Auto) Baso % (Auto) Absolute Neuts (auto) Absolute Lymphs (auto) Absolute Monos (auto) Absolute Eos (auto) Absolute Basos (auto) Seg Neutrophils % Sodium Potassium Chloride Carbon Dioxide Anion Gap BUN Creatinine Est GFR ( Amer) Est GFR (MDRD) Non-Af Glucose Calcium Magnesium Total Bilirubin Direct Bilirubin Neonat Total Bilirubin Neonat Direct Bilirubin Neonat Indirect Bili AST ALT Alkaline Phosphatase Troponin I < 0.012 Total Protein Albumin Lipase 205.6 Urine Color Urine Appearance Urine pH Ur Specific [place] Urine Protein Urine Glucose (UA) Urine Ketones Urine Blood Urine Nitrite Urine Bilirubin Urine Urobilinogen Ur Leukocyte Esterase Urine WBC (Auto) Urine RBC (Auto) Urine Mucus (Auto) Urine Ascorbic Acid Urine Opiates Screen NEGATIVE Urine Methadone Screen NEGATIVE Ur Barbiturates Screen NEGATIVE Ur Phencyclidine Scrn NEGATIVE Ur Amphetamines Screen NEGATIVE U Benzodiazepines Scrn NEGATIVE Urine Cocaine Screen NEGATIVE U Marijuana (THC) Screen NEGATIVE 09/15/20 00:20 WBC RBC Hgb Hct MCV MCH MCHC RDW Plt Count Lymph % (Auto) [place] % (Auto) Eos % (Auto) Baso % (Auto) Absolute Neuts (auto) Absolute Lymphs (auto) Absolute Monos (auto) Absolute Eos (auto) Absolute Basos (auto) Seg Neutrophils % Sodium Potassium Chloride Carbon Dioxide Anion Gap BUN Creatinine Est GFR ( Amer) Est GFR (MDRD) Non-Af Glucose Calcium Magnesium Total Bilirubin Direct Bilirubin Neonat Total Bilirubin Neonat Direct Bilirubin Neonat Indirect Bili AST ALT Alkaline Phosphatase Troponin I < 0.012 Total Protein Albumin Lipase Urine Color Urine Appearance Urine pH Ur Specific [place] Urine Protein Urine Glucose (UA) Urine Ketones Urine Blood Urine Nitrite Urine Bilirubin Urine Urobilinogen Ur Leukocyte Esterase Urine WBC (Auto) Urine RBC (Auto) Urine Mucus (Auto) Urine Ascorbic Acid Urine Opiates Screen Urine Methadone Screen Ur Barbiturates Screen Ur Phencyclidine Scrn Ur Amphetamines Screen U Benzodiazepines Scrn Urine Cocaine Screen U Marijuana (THC) Screen - Diagnostic Test Radiology reviewed: Reports reviewed - EKG Interpretation by Me EKG shows normal: Sinus rhythm Rate: Normal Additional EKG results interpreted by me: 09/15/20 03:42 Sinus rhythm rate of 69, QTc 412, no acute ischemic changes Discharge - Discharge Clinical Impression: Vertigo GERD (gastroesophageal reflux disease) Qualifiers: Esophagitis presence: esophagitis presence not specified Qualified Code(s): K21.9 - Gastro-esophageal reflux disease without esophagitis Chest pain Qualifiers: Chest pain type: unspecified Qualified Code(s): R07.9 - Chest pain, unspecified Condition: Stable Disposition: HOME, SELF-CARE Instructions: Antinausea Medication ([facility]), Chest Pain of Unclear Cause ([facility]), Meclizine ([facility]), Reflux Disease (GERD) ([facility]), Vertigo ([facility]) Additional Instructions: Return immediately for any new or worsening symptoms Followup with your primary care provider, call tomorrow to make a followup appointment Follow-up with your industrial safety and health specialist for recheck, call tomorrow for an appointment Follow-up with cardiology for follow up from today's visit Prescriptions: Meclizine HCl [Antivert 25 mg Tablet] 25 mg PO ASDIR PRN #15 tablet PRN Reason: Sucralfate [Carafate 1 gm Tablet] 1 gm PO ACHS #40 tablet Omeprazole Magnesium [Prilosec Otc] 20 mg PO DAILY #15 tablet. Ondansetron [Zofran Odt 4 mg Tablet] 1 tab PO Q6H #15 tab.rapdis Referrals: HARRY MAX DO [Primary Care Provider] - Follow up as needed JOANNA DURAND MD [ACTIVE STAFF] - Follow up as needed FLACO KING MD [ACTIVE STAFF] - Follow up as needed
[2020-09-15] MEDS ORDERED: MAG HYDROX/AL HYDROX/SIMETH SUSP 30 ML UDCUP PO ONE (00:11)
[2020-09-15] MEDS ORDERED: LIDOCAINE 2% VISCOUS SOLN 15 ML UDCUP PO ONE (00:11)
[2020-09-15 01:59] VITALS: BP 113/74
--- NOTE | 2020-09-15 09:02 | EKG REPORT ---
SEVERITY:- NORMAL ECG - SINUS RHYTHM : Confirmed by: Chan dEouard MD 15-Sep-2020 09:01:19
== END 2020-09-15 01:59 | disposition home or self-care (01) ==
LOC: ER 19:52
DX: K21.9 Gastro-esophageal reflux disease without esophagitis (principal); R42 Dizziness and giddiness; R07.9 Chest pain, unspecified; R05 Cough; Z88.8 Allergy status to other drugs, medicaments and biological substances
CPT/HCPCS: 93005; 99285; 36415; 83690; 83735; 85025; 80053; 81001; 84484; 80307; 71046; 93010; S0119